=== PATIENT | male | born 1975 | race Caucasian/White ===

== ENCOUNTER → 2018-04-03 | Outpatient (CLI) | payer OTHER ==
[2018-04-03 18:14] LABS: Free Thyroxine 1.58 ng/dL (0.70-1.60)
== END ==
LOC: LAB SHORT 12:14 → LAB 12:14
PROVIDERS: Internal Medicine Hematology & Oncology
DX: M25.50 Pain in unspecified joint (principal); R53.81 Other malaise; R53.83 Other fatigue; R63.4 Abnormal weight loss; D51.8 Other vitamin B12 deficiency anemias
CPT/HCPCS: 82607; 82746; 84439; 84443

== ENCOUNTER 2024-06-11 09:01 | Day surgery (SDC) | payer OTHER ==
[~2024-06-11] VITALS: Ht 193 cm; Wt 100.1 kg
[~2024-06-11 09:01] MED LIST: EPINEPhrine HCl 1 MG / ML 30ML Vial ONE
[2024-06-11] MEDS ORDERED: CeFAZolin Sodium 2,000 MG VIAL ONE (09:47)
[2024-06-11] MEDS ORDERED: Lactated Ringer's 1,000 ML IV ONE ×3 (09:47→13:59)
[2024-06-11] MEDS ORDERED: NS 50 ML IV ONE (09:47)
[2024-06-11] MEDS ORDERED: FentaNYL Citrate 50 MCG/ML 2 ML Injection ONE ×3 (09:56→15:41)
[2024-06-11] MEDS ORDERED: Midazolam HCl 1MG / ML 2ML Vial ONE ×2 (09:56→10:23)
[2024-06-11] MEDS ORDERED: propofoL 20 ML IV ONE (10:24)
--- NOTE | 2024-06-11 10:28 | NUR ---
06/11/24 1028 Uday Ruth, BLOCK TIMEOUT 1017 BLOCK STARTED 1018 BLOCK FINISHED 1028
--- NOTE | 2024-06-11 11:05 | NUR ---
06/11/24 Sabine5 Barbara Lund 1MG OF EPI (1MG/ML) ADDED TO THE FIRST BAG OF LR FOR IRRIGATION AT THE [facility].
[2024-06-11 15:10] VITALS: BP 126/89
--- NOTE | 2024-06-11 15:49 | NUR ---
06/11/24 1549 Amado Dukes FENTANYL 25MCG IV GIVEN AT 1548 FOR 6/10 RIGHT SHOULDER PAIN
== END 2024-06-11 16:17 | disposition home or self-care (01) ==
LOC: ORSCSDS 09:01
PROVIDERS: Orthopaedic Surgery
PROC: 0RQJ4ZZ Repair Right Shoulder Joint, Percutaneous Endoscopic Approach (ICD-10-PCS; principal; 2024-06-11 10:30)
PROC: 0RNJ4ZZ Release Right Shoulder Joint, Percutaneous Endoscopic Approach (ICD-10-PCS; principal; 2024-06-11 10:30)
PROC: 0LM14ZZ Reattachment of Right Shoulder Tendon, Percutaneous Endoscopic Approach (ICD-10-PCS; principal; 2024-06-11 10:30)
DX: M75.121 Complete rotator cuff tear or rupture of right shoulder, not specified as traumatic (principal); S43.431A Superior glenoid labrum lesion of right shoulder, initial encounter; M25.311 Other instability, right shoulder
CPT/HCPCS: C1713; J0171; J0690; J2250; J2704; J3010; J7120

== ENCOUNTER 2024-11-10 05:51 | Day surgery (SDC) | payer OTHER ==
[2024-11-10] VITALS (8 sets, daily range): BP systolic 122–147; BP diastolic 80–102
[~2024-11-10] VITALS: Ht 193 cm; Wt 102.0 kg
[2024-11-10] MEDS ORDERED: Lactated Ringer's 1,000 ML IV SCH (06:10)
[2024-11-10] MEDS ORDERED: Ampicillin Sod/Sulbactam Sod 3 GM in NS 100 ML IV SCH (06:15)
--- NOTE | 2024-11-10 06:55 | NUR ---
History, Chart, Medications and Allergies reviewed before start of procedure.PRE OP TEACHING DONE, AT BEDSIDE
[2024-11-10] MEDS ORDERED: Lidocaine 1%-Epineph 1:200000 30 ML SDV ONE (06:56)
[2024-11-10] MEDS ORDERED: Bupivacaine 0.5% HCl 5 MG/ML 30MLVIAL ONE (06:56)
[2024-11-10] MEDS ORDERED: propofoL 20 ML IV ONE (07:05)
[2024-11-10] MEDS ORDERED: Lidocaine HCl 2% 20 ML MDV ONE (07:05)
[2024-11-10] MEDS ORDERED: Bacitracin Ointment 30 GM TOP ONE (07:05)
[2024-11-10] MEDS ORDERED: Sugammadex Sodium 200 MG/2ML SDV (100 MG/ML) ONE (07:05)
[2024-11-10] MEDS ORDERED: Bacitracin Zinc Oint 1GRAM UD Packet TOP PRN (07:05)
[2024-11-10] MEDS ORDERED: Rocuronium Bromide 10 MG/ML 5ML Injection IV ONE (07:05)
[2024-11-10] MEDS ORDERED: FentaNYL Citrate 50 MCG/ML 2 ML Injection ONE ×2 (07:05→08:24)
[2024-11-10] MEDS ORDERED: Ondansetron HCl 2 MG / ML 2ML Vial ONE (07:05)
[2024-11-10] MEDS ORDERED: Dexamethasone Sod Phos 10 MG/ML 1ML VIAL ONE (07:05)
[2024-11-10] MEDS ORDERED: Midazolam HCl 1MG / ML 2ML Vial ONE (07:22)
[2024-11-10] MEDS ORDERED: Midazolam HCl 1MG / ML 2ML Vial IV ONE (07:25)
[2024-11-10] MEDS ORDERED: Ketorolac Tromethamine 30mg Vial ONE (07:49)
[2024-11-10] MEDS ORDERED: OxyCODONE 5 mg/Acetamin 325 mg TABLET PO PRN (08:30)
--- NOTE | 2024-11-10 09:25 | NUR ---
Patient up to Ambulate independently. Gait steady. Discharge instructions reviewed with patient. Patient verbalizes understanding. Copy given to patient to take home, [facility]. SCRIPT SENT WITH PT. Patient States Post-Procedure ride home has been arranged. Discharged via wheelchair to private car for ride home. PT TOLERATING PO. REPORTS READY TO GO HOME.
== END 2024-11-10 09:25 | disposition home or self-care (01) ==
LOC: ORSCMMR 05:51 → ORD 07:30 → ORSCMMR 09:25
PROVIDERS: Surgery
PROC: 06BY0ZC Excision of Hemorrhoidal Plexus, Open Approach (ICD-10-PCS; principal; 2024-11-10 07:30)
PROC: 0HB9XZZ Excision of Perineum Skin, External Approach (ICD-10-PCS; principal; 2024-11-10 07:30)
DX: K64.8 Other hemorrhoids (principal); K64.4 Residual hemorrhoidal skin tags; K21.9 Gastro-esophageal reflux disease without esophagitis
CPT/HCPCS: 88304; A9270; J0295; J1100; J1885; J2250; J2405; J2704; J3010; J7120

== ENCOUNTER 2025-06-17 08:08 | Day surgery (SDC) | payer OTHER ==
[~2025-06-17] VITALS: Ht 193 cm; Wt 100.7 kg
[~2025-06-17 08:08] MED LIST changes: +CeFAZolin Sodium 2,000 MG VIAL ONE; -EPINEPhrine HCl 1 MG / ML 30ML Vial ONE
[2025-06-17] MEDS ORDERED: TRAM50 (08:44)
[2025-06-17] MEDS ORDERED: CYCL10 PO (08:45)
[2025-06-17] MEDS ORDERED: Dexamethasone Sod Phos 10 MG/ML 1ML VIAL ONE ×2 (09:38→10:15)
[2025-06-17] MEDS ORDERED: Rocuronium Bromide 10 MG/ML 5ML Injection IV ONE (09:38)
[2025-06-17] MEDS ORDERED: Ondansetron HCl 2 MG / ML 2ML Vial ONE ×2 (09:38→10:15)
[2025-06-17] MEDS ORDERED: FentaNYL Citrate 50 MCG/ML 2 ML Injection ONE ×2 (09:39→12:38)
[2025-06-17] MEDS ORDERED: Midazolam HCL 1 MG/ML 5MLVIAL ONE (09:40)
[2025-06-17] MEDS ORDERED: Midazolam HCl 1MG / ML 2ML Vial ONE (09:40)
[2025-06-17] MEDS ORDERED: Lidocaine HCl 4% 5 ML SDA ONE (09:42)
[2025-06-17] MEDS ORDERED: Ropivacaine 0.5% HCL/PF 5 MG/ML 30ML Vial ONE (09:42)
--- NOTE | 2025-06-17 10:01 | NUR ---
06/17/25 [facility] Fany Vale 0945: TIMEOUT FOR BLOCK 0950: START OF BLOCK BY SALINAS OBRIEN CRNA. PT ON ROOM AIR. 0956: END OF BLOCK PROCEDURE BY SALINAS OBRIEN CRNA. PT TOLERATED WELL.
[2025-06-17] MEDS ORDERED: Ketorolac Tromethamine 30mg Vial ONE (10:15)
[2025-06-17] MEDS ORDERED: Sugammadex Sodium 200 MG/2ML SDV (100 MG/ML) ONE (10:18)
--- NOTE | 2025-06-17 10:45 | NUR ---
06/17/25 1045 Jayda Craft HEALING PINKISH/RED ABRASION LEFT FOREARM, SEEN DURING PREP, ROOM AWARE
--- NOTE | 2025-06-17 12:20 | NUR ---
06/17/25 1220 Jennifer Gastelum REPORT TO JESS ORTIZ AND BARBARA MERCADO.
--- NOTE | 2025-06-17 12:36 | NUR ---
06/17/25 1236 Janet Turpin ASSISTED TO CHAIR BY RN AT 1236. PT STATES HE IS DIZZY. DENIES N/V.
[2025-06-17] MEDS ORDERED: HYDROcodone 5-APAP 325 TAB ONE (12:50)
[2025-06-17 12:52] VITALS: BP 133/89
== END 2025-06-17 13:20 | disposition home or self-care (01) ==
LOC: ORSCSDS 08:08
PROVIDERS: Orthopaedic Surgery
PROC: 0LM24ZZ Reattachment of Left Shoulder Tendon, Percutaneous Endoscopic Approach (ICD-10-PCS; principal; 2025-06-17 09:30)
PROC: 0RNK4ZZ Release Left Shoulder Joint, Percutaneous Endoscopic Approach (ICD-10-PCS; principal; 2025-06-17 09:30)
DX: M75.112 Incomplete rotator cuff tear or rupture of left shoulder, not specified as traumatic (principal); M65.912 Unspecified synovitis and tenosynovitis, left shoulder; M71.9 Bursopathy, unspecified; K21.9 Gastro-esophageal reflux disease without esophagitis; E78.00 Pure hypercholesterolemia, unspecified
CPT/HCPCS: A6253; A9270; C1713; J0166; J0690; J1100; J1885; J2003; J2250; J2405; J2704; J2795; J3010; J7120